=== PATIENT | male | born 1960 | race Caucasian/White ===

== ENCOUNTER 2020-10-19 07:25 | Day surgery (SDC) | payer OTHER ==
[~2020-10-19] VITALS: Ht 180.3 cm; Wt 90.9 kg
[~2020-10-19 07:25] MED LIST: LOSARTAN-HCTZ1 EACH PO; PRILOSEC OTC20 MG PO
--- NOTE | 2020-10-19 08:08 | NUR ---
0740-SWABBED BOTH NARES FOR RAPID COVID TEST
--- NOTE | 2020-10-19 11:45 | NUR ---
10/19/20 1145 Dayan Braswell 1137 PATIENT ARRIVES TO PACU UNRESPONSIVE TO PAIN. NEEDS JAW THRUST BY RN. RESP EVEN AND UNLABORED WITH JAW THRUST. MASK AT 6 LITERS. HOB ELEVATED. 1145 PATIENT CONTINUES TO BE UNRESPONSIVE. RESP EVEN AND UNLABORED, ABLE TO MAINTAIN HIS OWN AIRWAY, MASK AT 6 LITERS.
[2020-10-19] MEDS ORDERED: ACETAMINOPHEN500 MG PO (12:05)
[2020-10-19] MEDS ORDERED: IBUPROFEN600 MG PO (12:05)
[2020-10-19] MEDS ORDERED: OXYCODON-ACETA1 EAC2 PO (12:05)
--- NOTE | 2020-10-19 12:30 | NUR ---
PATIENT TO FLOOR FROM PACU, BEDSIDE REPORT FROM TRIPP KELLY. ACTICOAT DRESSING TO LEFT GROIN APPEARS C/D/I. PATIENT REPROTS PAIN 6/10 ON PAIN SCALE. PROVIDED PUDDING AND ICE WATER, PATIETN TOLERATING BOTH. ADMINISTERED PAIN MEDICATION PER MAR. PATIENT STATES " I JUST FEEL LIKE EVERYTHING IS MOVING FAST" TRIPP KELLY REASSURED PATIENT THAT EFFECTS OF ANESTHESIA WOULD WHERE IN THE NEXT 24 HOURS, ENCOURAGED PATIENT TO REST BACK AND CLOSE EYES. AT BEDSIDE PROVIDING PATIENT WITH SUPPORT. VSS. VERBAL REPORT TO PRIMARY NURSE ALBERTINA.
--- NOTE | 2020-10-19 13:22 | NUR ---
VS CHECKED. PATIENT RESTING. STATES PAIN IMPROVING AFTER PERCOCET ADMIN. LEFT GROIN DRESSING WITH SMALL AMOUNT OF RED DRAINAGE. IV SITE WNL. SCDs ON. AT BEDSIDE. CALL LIGHT WITHIN REACH.
--- NOTE | 2020-10-19 14:42 | NUR ---
1425: PATIENT AWAKENED FOR VS CHECK. RATES PAIN AT 0/10. LEFT GROIN DRESSING WITH SMALL AMOUNT OF RED DRAINAGE. IV SITE WNL. SCDs ON. AT BEDSIDE. CALL LIGHT WITHIN REACH.
--- NOTE | 2020-10-19 15:44 | NUR ---
1530: DISCHARGE INSTRUCTIONS GIVEN TO PATIENT AND . PATIENT DRINKING WATER. STATES HAS NO URGE TO VOID AT THIS TIME. DECLINES TO GET OUT OF BED TO TRY AND VOID AT THIS TIME. REFILLED WATER BOTTLE. AT BEDSIDE. CALL LIGHT WITHIN REACH.
--- NOTE | 2020-10-19 16:21 | NUR ---
1545: PATIENT ASSISTED OOB. PATIENT STATES HE FEELS HIS "EQUILIBRIUM IS OFF." PATIENT USED URINAL AT BEDSIDE. VOID APPROXIMATELY 450 ML. 1605: PATIENT GETTING DRESSED WITH HELP OF . 1620: PATIENT DRESSED AND STATES READY TO GO HOME. IV DC'D WNL. TIP INTACT. DRESSING APPLIED. 1625: PATIENT DISCHARGED TO HOME WITH VIA WHEELCHAIR.
--- NOTE | 2020-10-22 15:35 | OR ---
[facility] [address], [place] [address] Signed DATE OF OPERATION: 10/19/2020 SURGEON: Alexander Trevino MD PREOPERATIVE DIAGNOSIS: Left inguinal hernia (large, symptomatic). POSTOPERATIVE DIAGNOSIS: Left inguinal hernia, direct type. PROCEDURE: Repair of direct left inguinal hernia with implantation of Prolene mesh in underlay technique. ANESTHESIA: General; Mariluz Hunt CRNA and local 20 mL of 0.25% Marcaine with epinephrine. 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 Jadyn Marin. He has had a bulge in the left groin for about four years, which is worsening in size and in symptoms. He has no urinary outlet obstructive symptoms. No chronic constipation or cough. He is admitted at this time to undergo repair of the hernia. He understands the risks of bleeding, infection, and recurrence. He understands these risks and wished to proceed. FINDINGS: A very bulky hernia was noted, complete attenuation of the external oblique fascia itself essentially all of the floor of the canal. Repair was undertaken with implantation of mesh in the properitoneal position. Cord structures were preserved. A large ilioinguinal nerve branch was identified and preserved and well out of harm's way from the repair itself. DESCRIPTION OF PROCEDURE: The patient was brought to the operating room and given a general anesthetic. Preoperative antibiotic Ancef was given. Sequential compression device stockings were used and heparin subcutaneously administered. The abdomen was clipped and prepared with a chlorhexidine solution and draped sterilely. An incision was made in the left groin cephalad to the pubic tubercle. Dissection was carried through the subcutaneous tissue with electrocautery. The patient had a fair amount of straining at that point at which the full manifestation of this hernia was quite evident. He was given paralytic agent Electronically Signed By: ALEXANDER TREVINO MD 10/22/20 1535 PATIENT NAME: PATRICK RENDON OPERATIVE REPORT DATE OF : 64 REPORT #: [id number] PHYSICIAN: ALEXANDER TREVINO MD PCP: JADYN MARIN A REPORT IS CONFIDENTIAL AND NOT TO BE RELEASED WITHOUT AUTHORIZATION [facility] [address], [place] [address] Signed and additional anesthesia allowing for further dissection. The dissection was carried through the subcutaneous tissue and the external oblique was completely attenuated, only a thin membrane remained. This was incised and a bulky hernia associated with the cord was bluntly from the groin and the hernia from the cord structures more fully. The redundant fatty tissue inferiorly was cauterized as necessary for hemostasis. Ultimately, the cord was encircled with a Felipe drain and the bulky protruding hernia more fully evaluated. There appeared to be complete attenuation of the floor of the inguinal canal. This would be considered a direct hernia. There was no distinct hernia sac. The herniated contents were simply pushed back into the abdominal cavity. The attenuated fibers of the fascia of the transversalis were incised with electrocautery allowing further blunt dissection of the properitoneal space. An Allis clamp was applied to the tendon of the transversus abdominis. A segment of Prolene mesh was cut to the appropriate configuration and secured in an underlay technique with interrupted 2-0 Prolene sutures. Care was taken for wide overlap medially and laterally. A defect was cut in the graft to accommodate the cord structures and the tails of the graft were secured laterally with all due care. A sizable ilioinguinal nerve was identified and maintained out of harm's way for incorporation of the sutures. Good repair appeared quite obvious. A 20 mL of 0.25% Marcaine with epinephrine was injected locally. The ilioinguinal nerve was replaced with the cord structures. There was really no remaining external oblique to approximated over this. Therefore, Nitish's layer was reapproximated with interrupted 2-0 Vicryl. The skin was closed with running subcuticular of 3-0 Vicryl. Steri-Strips were applied as was a silver sponge dressing. The patient was allowed to emerge from anesthesia and had no straining or stressing and was then taken to recovery room in good condition having suffered no complications. Sponge, needle, and instrument counts were reported as correct x3. MD ANSLEY Rapp/MODL /[id number] cc: Jadyn Marin MD Electronically Signed By: ALEXANDER TREVINO MD 10/22/20 1535 PATIENT NAME: PATRICK RENDON OPERATIVE REPORT DATE OF : 64 REPORT #: [id number] PHYSICIAN: ALEXANDER TREVINO MD PCP: JADYN MARIN REPORT IS CONFIDENTIAL AND NOT TO BE RELEASED WITHOUT AUTHORIZATION [address] [place], [place] [address] Signed Copies: ~ Electronically Signed By: ALEXANDER TREVINO MD 10/22/20 1535 PATIENT NAME: JOSE FCESARPATRICK OPERATIVE REPORT DATE OF : 64 REPORT #: [id number] PHYSICIAN: ALEXANDER TREVINO MD PCP: JADYN MARIN REPORT IS CONFIDENTIAL AND NOT TO BE RELEASED WITHOUT AUTHORIZATION
== END 2020-10-19 16:25 | disposition home or self-care (01) ==
LOC: DS 07:25 → OPS 07:25 → DS 09:45 → OPS 09:45
PROVIDERS: ATTEND Surgery
PROC: 0YU60JZ Supplement Left Inguinal Region with Synthetic Substitute, Open Approach (ICD-10-PCS; principal; 2020-10-19 09:45)
DX: K40.90 Unilateral inguinal hernia, without obstruction or gangrene, not specified as recurrent (principal); I10 Essential (primary) hypertension; K21.00 Gastro-esophageal reflux disease with esophagitis, without bleeding; R41.3 Other amnesia; G47.30 Sleep apnea, unspecified; Z79.899 Other long term (current) drug therapy; Z90.49 Acquired absence of other specified parts of digestive tract; Z98.890 Other specified postprocedural states; Z88.5 Allergy status to narcotic agent; Z88.8 Allergy status to other drugs, medicaments and biological substances; Z20.828 Contact with and (suspected) exposure to other viral communicable diseases
CPT/HCPCS: 00830; C1781; C9803; J0330; J0690; J1100; J1644; J1885; J2001; J2405; J2704; J3010; J7121; U0003

== ENCOUNTER 2022-09-16 08:40 | Day surgery (SDC) | payer OTHER ==
[~2022-09-16] VITALS: Ht 180.3 cm; Wt 92.0 kg
[~2022-09-16 08:40] MED LIST changes: +ACETAMINOPHEN500 MG PO; +IBUPROFEN600 MG PO; +OXYCODON-ACETA1 EAC2 PO; +PREVACID30 MG PO
[2022-09-16] MEDS ORDERED: PREVACID30 MG PO (09:16)
--- NOTE | 2022-09-16 10:31 | NUR ---
CHECKED IN ON PT, ASKED IF HIS COULD GO BACK HOME TO GET CPAP. THEY STATED THEY LIVE IN [place] SO THAT IS NOT POSSIBLE. PT DOING WELL, GAVE HIM WARM BLANKET AND MAXIMILIAN HUGGER.
--- NOTE | 2022-09-16 11:48 | NUR ---
WENT IN TO CHECK ON PT TO GIVE UPDATE ON DELAY, HE REPORTS NEEDING TO VOID, HE WAS ABLE TO VOID 400ML OF CLEAR YELLOW URINE HE USED A URINAL SITTING ON SIDE OF BED.
[2022-09-16] MEDS ORDERED: OXYCODONE HCL5 MG PO (13:18)
--- NOTE | 2022-09-16 13:18 | NUR ---
09/16/22 1318 Yelena Noguera 1311- PT ARRIVES TO PACU NONAROUSABLE TO NOXIOUS STIMULI WITH AN OPA IN PLACE. RESP EVEN AND UNLABORED. OXYGEN SAT HIGH 90'S TO 100% ON 12L VIA MASK. PT'S LEFT ANKLE ELEVATED ON A PILLOW AND AN ICE PACK PLACED WITH DRESSING IN BETWEEN SKIN AND ICE PACK. PT ALSO NEEDING A CHIN LIFT TO MAINTAIN PATENT AIRWAY.
--- NOTE | 2022-09-16 14:32 | NUR ---
PT BACK TO DS, ALERT AND AWAKE. DENIES PAIN OR NAUSEA, DRINKING WATER AND EATING JELLO TOLERATES WELL.
--- NOTE | 2022-09-16 14:33 | NUR ---
ICE TO LT ANKLE, TOLERATES WELL.
--- NOTE | 2022-09-16 14:41 | NUR ---
SPINAL IS AT CALF LEVEL. PT IS ABLE TO DO FOOT PUMPS ON RT FOOT HE IS NOT ABLE TO MOVE LT FOOT AT ALL. HE IS ABLE TO FEEL TOUCHING ON RT FOOT, HE HAS NO FEELING ON LT FOOT. PT RESTING WITH EYS CLOSED AT BEDSIDE. WARM BLANKETS GIVEN CALL LIGHT WITHIN REACH.
--- NOTE | 2022-09-16 15:21 | NUR ---
PT ABLE TO MOVE AND FEEL TOES ON LT FOOT. SPINAL HAS RESOLVED, HE HAS FULL FUNCTION OF RT LEG.
--- NOTE | 2022-09-16 16:45 | NUR ---
1620 PT SITTING AT EDGE OF BED TRYING TO VOID, HE WAS UNSUCCESSFULL. DR BERNSTEIN CALLED, FLOMAX WAS ORDERED. PT REPORTS PAIN TO LT ANKLE 3/10 HE STATES ITS DISCOMFORT MORE THAN PAIN.
--- NOTE | 2022-09-16 16:48 | NUR ---
PT EATING DINNER. SANDWITCH AND SOUP TOLERATES WELL.
--- NOTE | 2022-09-16 18:06 | NUR ---
PT SITTING AT THE EDGE OF BED ATTEMPTING TO VOID AGAIN. USED A BASIN WITH WARM WATER TO PUT HIS HAND IN TO ASSIST WITH TRYING TO VOID. HE WAS NOT SUCCESSFULL. HE REPORTS HIS BOTTOM IS FEELING A LITTLE BIT LESS NUMB.
--- NOTE | 2022-09-16 18:59 | NUR ---
PT HAS HAD A TOTAL OF 900ML OF WATER PO. 3000ML LR IV TOTAL FOR THE DAY. HE VOIDED 400ML OF URINE BEFORE SURGERY.
--- NOTE | 2022-09-16 19:17 | NUR ---
BLADDER SCANNED OF 977ML
--- NOTE | 2022-09-16 19:19 | NUR ---
SPOKE WITH DR BERNSTEIN HE ORDERED BAHENA TO BE PLACED AND LEFT IN OVER NIGHT TO BE REMOVED AT 6AM
--- NOTE | 2022-09-16 20:10 | NUR ---
1929 BAHENA PLACED PT TOLERATED WELL. 1000ML OF CLEAR YELLOW URINE EMTIED FROM BAHENA BAG. 1999 PT TRANSFERED TO MED SURG AWAKE ALERT AND ORIENTED.
--- NOTE | 2022-09-16 20:20 | NUR ---
PT TO ROOM 113 FROM PACU VIA STRETCHER. ALERT AND ORIENTED. ABLE TO TRANSFER SELF FROM STRETCHER TO BED. LEFT FOOT IN FRACTURE BOOT. ELEVATED ON PILLOWS WITH ICE IN PLACE. CMS INTACT. PT REPORTS PAIN IS TOLERABLE AT THIS TIME. BAHENA PATENT WITH CLEAR YELLOW URINE. VS WNL. CPOX IN PLACE. PT ORIENTED TO ROOM AND NURSE CALL LIGHT. DENIES QUESTIONS OR CONCERNS. CALL LIGHT IN REACH.
--- NOTE | 2022-09-16 20:45 | NUR ---
PT REPORTS INCREASED PAIN IN LEFT ANKLE. PRN FOR PAIN ADMIN PER EMAR. CHOCOLATE PUDDING AND ICE WATER PROVIDED.
--- NOTE | 2022-09-16 22:30 | NUR ---
PT AWAKE WATCHING TV IN BED. REPORTS LEFT ANKLE PAIN TOLERABLE AT THIS TIME. ICE WATER PROVIDED. NO FURTHER NEEDS.
--- NOTE | 2022-09-17 02:10 | NUR ---
VS AND I&O COMPLETE. PT REPORTS LLE PAIN 03/08. PRN FOR PAIN ADMIN PER EMAR. LLE ELEVATED WITH PILLLOWS AND ICE IN PLACE. CMS INTACT. BAHENA PATENT. NO FURTHER NEEDS.
--- NOTE | 2022-09-17 06:31 | NUR ---
VS AND I&O WNL. SHRUTI VALDEZ'Freedom WNL. PT REPORTS LEFT ANKLE PAIN 05/08. PRN FOR PAIN ADMIN PER EMAR. COFFEE AND PUDDING PROVIDED. NO FURTHER NEEDS.
--- NOTE | 2022-09-17 07:29 | NUR ---
REPORT FROM ROBIN GAMEZ.
--- NOTE | 2022-09-17 07:55 | NUR ---
MORNING ASSESSMENT DONE. PATIENT REPORTS 7/10 LEFT ANKLE PAIN AND THIS IS DOWN FROM 8/10 AT MEDICATION TIME. LEFT LEG REPOSITIONED WITH 3 PILLOWS AND ICE, IS WELL ELEVATED. PATIENT DENIES NEEDING TO VOID AT THIS TIME. CALL FROM DR. BERNSTEIN. PATIENT MAY HAVE TYLENOL.
--- NOTE | 2022-09-17 08:05 | NUR ---
PT IN BED. RN TO ENTER ROOM. FRESH ICE WATER GIVEN. NO FURTHER NEEDS. CALL LIGHT WITHIN REACH.
--- NOTE | 2022-09-17 09:05 | NUR ---
PATIENT GIVEN MORE MORNING MEDICATION, PAIN IS 5/10. PATIENT UP TO BATHROOM WITH CRUTCHES AND 1PA, STEADY ON HIS FEET.
--- NOTE | 2022-09-17 09:12 | NUR ---
PT BATH LIGHT ANSWERED. PT ASSISTED OFF TOILET BACK TO BED BY 1 PA W CRUTCHES. PT L LEG ELEVATED. NEW ICE PACKS AND FRESH WATER GIVEN. NO FURTHER NEEDS. CALL LIGHT WITHIN REACH
--- NOTE | 2022-09-17 10:12 | NUR ---
PATIENT GIVEN 5MG OXYCODONE FOR 8/10 LEFT ANKLE PAIN. PILLOW REPOSITIONED PER PATIENT. PATIENT HAS BEEN ABLE TO VOID 600ML AND D/C PAPER WILL BE PREPARED. PATIENT WISHES TO REVIEW THESE WHEN HIS COMES TO THE HOSPITAL.
--- NOTE | 2022-09-17 11:19 | NUR ---
DISCHARGE INSTRUCTIONS REVIEWED WITH PATIENT AND SPOUSE. PATIENT RIGHT IV OUT, UP TO BATHROOM AND SPOUSE IS HELPING HIM GET DRESSED.
--- NOTE | 2022-09-19 16:52 | OR ---
[facility] [address], [place] [address] Signed DATE OF OPERATION: 09/16/2022 SURGEON: Reji Dave MD PREOPERATIVE DIAGNOSIS: Left Maisonneuve fracture. POSTOPERATIVE DIAGNOSIS: Left Maisonneuve fracture. PROCEDURE PERFORMED: Open reduction and internal fixation of left ankle. VIDEO TECHNICIAN: Katey Lo PA-C. Katey was present for all portions of procedure. ANESTHESIA: Spinal. BLOOD LOSS: None. TOURNIQUET TIME: 25 minutes. IMPLANTS: Two 4.0 screws and TightRope. 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 He is unable to bear weight and x-rays were taken at an outside facility showing a medial malleolus fracture that was displaced. He was referred to us. On examination, he did have tenderness over the proximal fibula and radiographs did show a proximal fibular fracture consistent with a Maisonneuve fracture type. Risks and benefits of operative treatment were discussed with him and he elected to proceed. Once consent was obtained, he was taken to the operating room. After adequate anesthesia, he was placed on the operating room table. All downside pressure points well padded. The left leg was placed in well-padded proximal thigh tourniquet, prepped and draped in a standard sterile fashion. Leg was exsanguinated using Esmarch bandage. Tourniquet inflated to 250 mmHg. The medial malleolus was approached first Electronically Signed By: REJI DAVE MD 09/19/221651 PATIENT NAME: PATRICK RENDON OPERATIVE REPORT DATE OF : 64 REPORT #: [id number] PHYSICIAN: REJI DAVE MD PCP: JADYN MARIN REPORT IS CONFIDENTIAL AND NOT TO BE RELEASED WITHOUT AUTHORIZATION [facility] [address], [place] [address] Signed through a longitudinal incision, carried through skin and subcutaneous tissue. Periosteum was then elevated. The anterior periosteum was then taken out of the fracture site and folded back. The fracture was then reduced and held with a single tenaculum. A K-wire was placed to reinforce this. Under image intensifier guidance, two 4.0 screws were drilled and appropriate length screws were placed. Once this was accomplished, we did stress radiographs of the syndesmosis, which showed widening. We then made a stab incision on the lateral side and placed a Arthrex tightrope across the fibula into the tibia. It was then tightened, but we did not use a clamp. Once this was accomplished, the sutures were cut. The medial wound was closed with 2-0 Monocryl and german. The lateral wound with just german. Wounds were dressed with Allevyn and Lev wrap. He was awakened, taken to the recovery room in satisfactory condition. All sponge, needle, and instrument counts were correct. Reji Dave MD BA/MODL /[id number] Copies: ~ Electronically Signed By: REJI DAVE MD 09/19/22 165 PATIENT NAME: PATRICK RENDON OPERATIVE REPORT DATE OF : 64 REPORT #: [id number] PHYSICIAN: REJI DAVE MD PCP: JADYN MARIN REPORT IS CONFIDENTIAL AND NOT TO BE RELEASED WITHOUT AUTHORIZATION
== END 2022-09-17 11:30 | disposition home or self-care (01) ==
LOC: DS 08:40 → MS 20:10 → DS 09-17 11:30
PROVIDERS: ATTEND Specialist
PROC: 0SSG04Z Reposition Left Ankle Joint with Internal Fixation Device, Open Approach (ICD-10-PCS; 2022-09-16)
PROC: 0QS704Z Reposition Left Upper Femur with Internal Fixation Device, Open Approach (ICD-10-PCS; principal; 2022-09-16 12:45)
DX: S82.862A Displaced Maisonneuve's fracture of left leg, initial encounter for closed fracture (principal); G47.33 Obstructive sleep apnea (adult) (pediatric); I10 Essential (primary) hypertension; W00.2XXA Other fall from one level to another due to ice and snow, initial encounter
CPT/HCPCS: 64445; 64447; 73600; 76942; 87502; A9270; C1713; J0171; J0690; J1100; J1885; J2001; J2250; J2405; J2704; J2765; J3010; J7121; U0003